=== PATIENT | male | born 1995 | race Caucasian/White ===

== ENCOUNTER 2020-06-04 19:24 | Emergency (ER) | payer OTHER, SELFPAY ==
[2020-06-04 19:40] VITALS: BP 128/85; PULSE 110; RESP 16; TEMP 37.1; O2SAT 98
--- NOTE | 2020-06-04 19:44 | ED.EAR ---
HPI - Ear Problem General Chief complaint: Ear Stated complaint: something in left ear Time Seen by Provider: 06/04/20 19:41 Source: patient and RN notes reviewed Mode of arrival: ambulatory Limitations: no limitations History of Present Illness HPI Narrative: Patient presents today complaining of buzzing and possible foreign body sensation to the left ear x2 months. Denies pain or drainage. Symptoms have not worsened since onset. He has tried earwax softening drops as well as a bulb syringe without relief of symptoms. Denies any other symptoms to include fever, cough, postnasal drip, congestion, rhinorrhea, muffled hearing. MD Complaint: other (Foreign body sensation, buzzing) Related Data Home Medications Medication Instructions Recorded Confirmed No Home Medications 06/04/20 06/04/20 Allergies Allergy/AdvReac Type Severity Reaction Status Date / Time cefprozil [From Cefzil] AdvReac Unknown Verified 06/04/20 19:41 Penicillins AdvReac Unknown Verified 06/04/20 19:40 Review of Systems Review of Systems: Narrative: CONSTITUTIONAL: Denies body aches, fever, chills, or sweats. EYES: Denies visual changes, redness, or discharge. ENT: Denies rhinorrhea, congestion, sore throat, or otalgia.+ Foreign body sensation and buzzing to the left ear CARDIOVASCULAR: Denies chest pain, palpitations, or edema. RESPIRATORY: Denies cough or dyspnea. GASTROINTESTINAL: Denies abdominal pain, nausea, vomiting, or diarrhea. GENITOURINARY: Denies dysuria or hematuria. SKIN: Denies rash, itching, or wounds. MUSCULOSKELETAL: Denies back pain, joint pain, or myalgia. NEUROLOGIC: Denies headache, numbness, tingling, or weakness. PSYCH: Denies depression or anxiety. PMFSH Social History Social History Gender identity (if verbalized by the patient): Male Comments At time of signature, I have reviewed and agree with nursing past medical, surgical, social and family history unless otherwise noted. Please see nursing chart for further information. There is no relevant family history pertinent to the presenting complaint Exam Narrative: Exam Narrative: GENERAL: Well-appearing, well-nourished, and in no acute distress. HEAD: Normocephalic, atraumatic. EYES: EOMI. No redness or drainage. Conjunctivae normal. ENT: Mucous membranes pink and moist. Nares clear. No rhinorrhea. TMs normal bilaterally. There is a small amount of clear yellow fluid with bubble noted behind left TM. Ear canals normal. Throat normal. Uvula midline. NECK: Normal AROM. Supple. No lymphadenopathy. CHEST: No respiratory distress. EXTREMITIES: Normal range of motion. No edema. SKIN: Warm, dry, no rash. Capillary refill normal. Normal skin turgor. NEURO: No focal deficits. Alert and oriented x3. Gait steady. PSYCH: Normal affect. No signs of depression or anxiety. Course Vital Signs Vital signs: Vital Signs Temperature 98.7 F 06/04/20 19:40 Pulse Rate 110 H 06/04/20 19:40 Respiratory Rate 16 06/04/20 19:40 Blood Pressure 128/85 06/04/20 19:40 Pulse Oximetry 98 06/04/20 19:40 Temperature 98.7 F 06/04/20 19:40 Pulse Rate 110 H 06/04/20 19:40 Respiratory Rate 16 06/04/20 19:40 Blood Pressure 128/85 06/04/20 19:40 Pulse Oximetry 98 06/04/20 19:40 Reviewed. Pt has been instructed to follow up with his PCP regarding his elevated blood pressure today. Medical Decision Making Differential Diagnosis Differential Diagnosis: Otitis media, otitis externa, ruptured TM, serous otitis, eustachian tube dysfunction, cerumen impaction, foreign body Vital Signs Vital Signs: Vital Signs Temperature 98.7 F 06/04/20 19:40 Pulse Rate 110 H 06/04/20 19:40 Respiratory Rate 16 06/04/20 19:40 Blood Pressure 128/85 06/04/20 19:40 Pulse Oximetry 98 06/04/20 19:40 Temperature 98.7 F 06/04/20 19:40 Pulse Rate 110 H 06/04/20 19:40 Respiratory Rate 16 06/04/20 19:40 Blood Pressure 128/85 06/04/20 19:40 Pulse
== END 2020-06-04 19:48 | disposition home or self-care (01) ==
PROVIDERS: Emergency Provider Nurse Practitioner
DX: H65.192 Other acute nonsuppurative otitis media, left ear (principal)
CPT/HCPCS: 99201; G0463

== ENCOUNTER 2020-09-25 10:52 | Emergency (ER) | payer SELFPAY ==
[2020-09-25 11:01] VITALS: BP 116/71; PULSE 72; RESP 18; TEMP 36.9; O2SAT 100
--- NOTE | 2020-09-25 11:03 | ED.LOWEXIN ---
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 Patient states that he initially hurt his ankle on Thanksgiving when he was goofing around and fell onto his right ankle. Patient states that he was off for a week after thanksgiving while his boss was on vacation and he has worked only a couple of days since his boss has returned. Patient has not taken any OTC medication for discomfort or has he used any ice or any faisal wrap to his ankle. Informed patient that the only way to make sure their is no fracture of his ankle is by x-ray and patient refuses stating he can't afford to have x-ray done. Patient does have swelling present to his lateral ankle with discomfort stated with weight bearing, point tenderness near lateral ankle area noted with patient able to flex and extend foot with no increase in pain voiced.He reports that he has appointment for check up with his regular doctor on the 27 of September and also to be reevaluated by psychiatrist. MD complaint: ankle injury (right) Injury: Right: ankle (lateral) Type of Injury: eversion Place: work Severity: moderate Severity scale (1-10): 6 Exacerbating factors: weight bearing Context: fall Associated symptoms: swelling and ambulatory Other symptoms: none Treatments prior to arrival: other (none) Related Data Home Medications Medication Instructions Recorded Confirmed No Home Medications 06/04/20 09/25/20 Allergies Allergy/AdvReac Type Severity Reaction Status Date / Time bee venom protein (honey bee) Allergy Severe Anaphylaxis Verified 09/25/20 11:10 [bees] Penicillins Allergy Severe Anaphylaxis Verified 09/25/20 11:09 cefprozil [From Cefzil] AdvReac Unknown Unknown Verified 09/25/20 11:09 Review of Systems Review of Systems: Narrative: CONSTITUTIONAL: Denies fever, chills, or sweats. EYES: Denies visual changes, redness, or discharge. ENT: Denies rhinorrhea, congestion, sore throat, or otalgia. CARDIOVASCULAR: Denies chest pain, palpitations, or edema. RESPIRATORY: Denies cough or dyspnea. GASTROINTESTINAL: Denies abdominal pain, nausea, vomiting, or diarrhea. GENITOURINARY: Denies dysuria or hematuria. SKIN: Denies rash or itching. MUSCULOSKELETAL: Denies back pain,positive for right lateral ankle pain with increase in pain with ambulation, lateral ankle swelling. NEUROLOGIC: Denies headache, numbness, or weakness. PSYCHIATRIC:Positive history of anxiety or depression. All systems reviewed & are unremarkable except as noted in HPI and below PMFSH Past Medical History Medical History (Updated 09/26/20 @ 00:00 by Buddy Tierney) ADHD Bipolar 1 disorder Schizophrenia Surgical History Surgical History (Updated 09/26/20 @ 11:19 by Lexie Fletcher NP) No history of previous surgery Social History Social History (Updated 09/26/20 @ 11:20 by Lexie Fletcher NP) Smoking status: Current every day smoker Alcohol intake: unknown Substance use: unknown Living arrangements: with family Additional occupation/education comments: works for [employer] Gender identity (if verbalized by the patient): Male Comments At time of signature, agree with nursing past medical, surgical, social history. There is no relevant family history pertinent to the presenting complaint Exam Narrative: Exam Narrative: GENERAL: Well-appearing, well-nourished, and in no acute distress. HEAD: Normocephalic, atraumatic. EYES: PERRLA and EOMI. ENT: Nares clear, no rhinorrhea or epistaxis. Mucous membranes moist. NECK: Supp
[2020-09-25 11:10] VITALS: BP 116/71; PULSE 72; RESP 18; TEMP 36.9; O2SAT 100
== END 2020-09-25 11:28 | disposition home or self-care (01) ==
PROVIDERS: Emergency Provider Registered Nurse
DX: M25.471 Effusion, right ankle (principal); F17.200 Nicotine dependence, unspecified, uncomplicated
CPT/HCPCS: 99212; G0463

== ENCOUNTER 2021-03-01 19:58 | Emergency (ER) | payer OTHER, SELFPAY ==
--- NOTE | 2021-03-01 09:28 | ECG_ITS ---
Measurements Intervals [place] Rate: 65 P: 70 CT: 126 QRS: 70 QRSD: 88 T: 61 QT: 378 QTc: 394 Interpretive Statements SINUS RHYTHM NORMAL ECG Electronically Signed On 03-02-2021 13:16:04 CDT by Will SHARMA
[2021-03-01 20:07] VITALS: BP 124/71; PULSE 71; RESP 20; TEMP 36.6; O2SAT 100
--- NOTE | 2021-03-01 20:10 | ED.GENADULT ---
HPI - General Adult General Chief complaint: Unspecified Stated complaint: sob Time Seen by Provider: 03/01/21 20:10 Source: patient Mode of arrival: ambulatory Limitations: no limitations History of Present Illness HPI narrative: Caleb Perdue is a 26 yo male with prior medical history of bipolar disease and schizoaffective disorder was vaping about a month ago and got pain in his upper left back that went away and again occurred today. In triage his O2 sats were 100%, his vital signs within normal limits, he is not tachycardic with a pulse rate of 71, he is afebrile. He has no primary care physician states that he is in between doctors will need referral for primary care for follow up He has no fever, no nausea, vomiting, diarrhea, no diaphoresis, he has no chest pain. Related Data Allergies Allergy/AdvReac Type Severity Reaction Status Date / Time bee venom protein (honey bee) Allergy Severe Anaphylaxis Verified 09/25/20 11:10 [bees] Penicillins Allergy Severe Anaphylaxis Verified 09/25/20 11:09 cefprozil [From Cefzil] AdvReac Unknown Unknown Verified 09/25/20 11:09 Review of Systems Review of Systems: Narrative: CONSTITUTIONAL: Denies fever, chills, sweats. EYES: Denies visual changes, redness, discharge. ENT: Denies rhinorrhea, congestion, sore throat, otalgia. CARDIOVASCULAR: Denies chest pain, palpitations, edema. Has chest wall pain RESPIRATORY: Denies dyspnea, wheezing, cough GASTROINTESTINAL: Denies abdominal pain, nausea, vomiting, diarrhea. GENITOURINARY: Denies dysuria, hematuria, abnormal discharge SKIN: Denies rash or itching. NEUROLOGIC: Denies numbness, or focal weakness. PSYCHIATRIC: Denies anxiety or depression. [facility] Past Medical History Medical History ADHD Bipolar 1 disorder Schizophrenia Surgical History Surgical History No history of previous surgery Social History Social History (Updated 03/01/21 @ 20:18 by Elly Mendoza CNP) Smoking status: Current every day smoker Tobacco type: e-cigarettes/vaping Alcohol intake: never Substance use: unknown Additional occupation/education comments: works for [employer] Gender identity (if verbalized by the patient): Male Comments At time of signature, I agree with nursing past medical, surgical, social and family history. There is no relevant family history pertinent to the presenting complaint. Exam Narrative: Exam Narrative: GENERAL: This is a well-nourished, well-developed patient, in mild distress. HEAD: normocephalic, atraumatic. EYES Sclera clear/white. Vision is grossly intact. EARS: External ears normal, . Hearing grossly intact. NOSE: External nose normal without nasal discharge, nares without redness, no rhinorrhea. THROAT: Mucous membranes moist, NECK: Neck supple, non-tender CARDIOVASCULAR: Regular rate and rhythm without murmurs, gallops, or rubs. RESPIRATORY: Clear to auscultation. Breath sounds equal bilaterally. No wheezes, rales, or rhonchi. Left upper chest wall tenderness, reproducible when lifts arm overhead and by twisting to the right GASTROINTESTINAL: Abdomen soft, SKIN: warm, intact with no suspicious lesions or rash, good texture and turgor. NEURO: awake, alert, and oriented to person, place and time. There were no obvious focal neurologic abnormalities. Steady gait EXTREMITIES: Normal range of motion. BACK: Nontender without deformity Course Course Emergency Course: Patient here for evaluation of chest wall tenderness that reoccurred this afternoon EKG is within normal range Heart rate is 65, no acute T prolongation, no axis deviation, no ST segment elevation or deviation, EKG is normal sinus rhythm, normal EKG Re-Evaluation: With normal vital signs, 100% O2 sats, ability to talk in full sentences with no sign of shortness of breath, and reproducible chest wall tenderness brent
== END 2021-03-01 20:29 | disposition home or self-care (01) ==
PROVIDERS: Emergency Provider Nurse Practitioner
DX: R07.89 Other chest pain (principal); F17.200 Nicotine dependence, unspecified, uncomplicated
CPT/HCPCS: 93005; 99213; G0463